=== PATIENT | female | born 1955 | race Caucasian/White ===

== ENCOUNTER 2024-07-21 14:52 | Emergency (ER) | payer MEDICARE, OTHER, SELFPAY ==
--- NOTE | 2024-07-21 14:59 | ED.GENMED ---
ED Provider Triage
<Anthony Gusman PA-C - Last Filed: 07/21/24 15:00>
-
Patient seen by provider in Triage?: Seen in Triage
Attestation: A medical screening examination has been initiated by a qualified medical provider. Based on the assessment performed at this time, it has been determined that an emergent medical condition may exist and the patient has been informed
that further medical evaluation and possible additional diagnostic testing may be needed.
HPI: 69-year-old female status post left total knee replaced, calf pain and tenderness. Surgery performed at [facility]. Had US there that was negative but has had increased pain and edema. Recommended for US. US ordered. Patient otherwise stable
GENERAL: Alert , in no apparent distress
EYE: No visual abnormalities.
NECK: Trachea midline
ENT: No visible abnormalities.
LUNGS: No acute respiratory distress
NEUROLOGICAL: Alert and oriented
SKIN: Skin intact. No visible changes.
MUSCULOSKELETAL: Moving extremities normally
PSYCH: Normal and appropriate interaction.
This is a medical evaluation conducted in person to initiate diagnostic evaluation and provide initial therapeutics. Please see further documentation by the treating clinician.
History of Present Illness
<Anthony Gusman PA-C - Last Filed: 07/21/24 15:00>
General
Chief Complaint: DVT/Possible Blood Clot
Time Seen by Provider: 07/21/24 15:47
<Aura Kaiser NP - Last Filed: 07/21/24 16:34>
General
Source: patient
Exam Limitations: none
Nursing documentation reviewed up to this point in time: agreed with
History of Present Illness
History of Present Illness:
S/P LTKR 1 week ago. She states before discharge she had developed left calf pain. DVT study was neg. Since then pain continues to worsen. + post of swelling and bruising. Came to ED today for repeat DVT study.
Past History
<Aura Kaiser NP - Last Filed: 07/21/24 16:34>
Past History
ED Past Medical History: None and HTN
ED Past Surgical History: Orthopedic
Review of Systems
<Aura Kaiser NP - Last Filed: 07/21/24 16:34>
Review of Systems
Allergies reviewed?: Yes
All Other Systems: ROS reviewed and negative except as documented in HPI and ROS
Constitutional: Reports no symptoms
EENT: Reports no symptoms
Respiratory: Reports no symptoms
Cardiac: Reports no symptoms
ABD/GI: Reports no symptoms
Musculoskeletal: Reports other (left calf pain)
Skin: Reports other (LTKR dressing dry and intact, No erythema. +swelling and bruising)
Neurological: Reports no symptoms
Psychiatric: Reports no symptoms
Phy Exam
<Aura Kaiser NP - Last Filed: 07/21/24 16:34>
General Physical Exam
General Presentation: well appearing and no apparent distress
General age: appears stated age
General Skin: warm and dry
General Habitus: normal
General Mental: alert
General Hydration: appears well hydrated
Musculoskeletal Exam
Musculoskeletal Exam: neuro vasc intact and other (Left knee dressing dry and intact. NO erythema. Postop swelling and bruising. Bruising extends from left mid thigh to foot. +calf swelling but soft. No evidence of compartment syndrome.
Neurovascularly intact.)
Skin Exam
Skin Exam: normal color, warm/dry and no rash
Psychiatric Exam
Psychiatric Exam: normal mood/affect
Course
<Anthony Gusman PA-C - Last Filed: 07/21/24 15:00>
Orders/Labs/Results
Orders:
Orders
07/21/24 14:59
US Periph Venous LOWER Ext LT Urgent
Comment:
Reason For Exam: pain, s/p left TKR
Vital Signs
Initial and Last Documented VS:
Initial Vital Signs
Temp Pulse Resp BP Pulse Ox
98.1 F 88 19 185/98 99
07/21/24 15:01 07/21/24 15:01 07/21/24 15:01 07/21/24 15:01 07/21/24 15:01
Last Documented Vital Signs
Temp Pulse Resp BP Pulse Ox
98.1 F 88 19 185/98 99
07/21/24 15:01 07/21/24 15:01 07/21/24 15:01 07/21/24 15:01 07/21/24 15:01
<Aura Kaiser CASINO PORTER - Last Filed: 07/21/24 16:34>
Orders/Labs/Results
Orders:
Orders
07/21/24 14:59
US Periph Venous LOWER Ext LT Urgent
Comment:
Reason For Exam: pain, s/p left TKR
Vital Signs
Initial and Last Documented VS:
Initial Vital Signs
Temp Pulse Resp BP Pulse Ox
98.1 F 88 19 185/98 99
07/21/24 15:01 07/21/24 15:01 07/21/24 15:01 07/21/24 15:01 07/21/24 15:01
Last Documented Vital Signs
Temp Pulse Resp BP Pulse Ox
98.1 F 88 19 185/98 99
07/21/24 15:01 07/21/24 15:01 07/21/24 15:01 07/21/24 15:01 07/21/24 15:01
<Aura Kaiser NP - Last Filed: 07/21/24 16:34>
MDM/Problems Addressed
Differential Diagnosis Includes:
DVT, compartment syndrome, muscular pain, infection.
<Aura Kaiser NP - Last Filed: 07/21/24 16:34>
*Radiology
Radiology exam reviewed: radiology read reviewed
*Critical Care Note
Total Time (30-74mins, 75-104mins- exclusive of procedures): Not Applicable
ED Attending Note
<Anthony Gusman PA-C - Last Filed: 07/21/24 15:00>
-
Portions of this chart may have been created with voice recognition software.� Occasional wrong word or��sound alike� substitutions may have occurred due to the inherent limitations of voice recognition software.
Discharge Plan
Departure
Patient Disposition: Home (Routine Discharge)
Date of Disposition: 07/21/24
Time of Disposition: 16:25
Patient with high blood pressure during this ER visit?: No
Condition: Good
Covid-19: Not Applicable
Discharge Problem:
Calf pain
Instructions: Musculoskeletal Pain
Prescriptions:
No Action
acetaminophen 650 mg Tablet Extended Release
1,300 mg PO DAILY
cranberry 500 mg Capsule
500 mg PO QPM
cholecalciferol (vitamin D3) [Vitamin D3] 25 mcg (1,000 unit) Tablet
25 mcg PO DAILY
Beet
1 cap PO QPM
Focus Factor
1 cap PO QPM
metoprolol succinate 25 mg Tablet Extended Release 24 Hr
25 mg PO DAILY Qty: 30 0RF
Activity Restrictions/Additional Instructions:
Follow up with your orthopedic provider tomorrow as scheduled.
Interventions
Interventions:
*Risk Screen - Suicide Last Done: 07/21/24 15:02
*Neglect/Abuse Screening Last Done: 07/21/24 15:02
Discharge Date and Time
Print Language: [place]
[2024-07-21 15:01] VITALS: BP 185/98
== END 2024-07-21 16:55 | disposition home or self-care (01) ==
LOC: EMR 14:52
PROVIDERS: EMERGENCY PHYSICIAN Emergency Medicine; FAMILY PHYSICIAN Internal Medicine
DX: M79.662 Pain in left lower leg (principal); R22.42 Localized swelling, mass and lump, left lower limb; I10 Essential (primary) hypertension
CPT/HCPCS: 99284; 93971